=== PATIENT | female | born 1995 | race Caucasian/White ===

== ENCOUNTER → 2017-09-16 | Outpatient (CLI) | payer OTHER | LOC: BMCIMAGING 17:44 | PROVIDERS: ATTEND Family Medicine | DX: M54.5 Low back pain (principal); V89.9XXA Person injured in unspecified vehicle accident, initial encounter ==

== ENCOUNTER 2018-11-08 18:39 | Emergency (ER) | payer OTHER ==
[2018-11-08 18:46] VITALS: BP 126/91
--- NOTE | 2018-11-08 19:16 | EDPHY ---
HPI/HX/ROS/PE/MDM Narrative: CHIEF COMPLAINT: Head injury HISTORY OF PRESENT ILLNESS: This patient is a 23 year old female complaining of headache and nausea secondary to a head injury on Wednesday, three days ago. She was sitting on a bench and purposefully hit her head forcefully into the side of the bench three times. She was with her boyfriend and was upset at the time. She endorses history of hurting herself, usually in the setting of being upset. She denies any suicidal or homicidal ideation. Today, she complains of nausea and dizziness. Denies any vomiting. She endorses frontal headache, and tenderness to the left side of her head. She has taken one ibuprofen, on Wednesday, without relief. She endorses a sensation of being disconnected from her body and states "I feel like I'm in outer space". She takes sertraline daily. She does take oral contraceptives. She denies any fluid draining from her ears or nose. No recent cough or cold. No fever, chills, chest pain, shortness of breath, palpitations, vomiting, diarrhea, urinary complaints. REVIEW OF SYSTEMS: A comprehensive 10 system review of systems is otherwise negative aside from elements mentioned in the history of present illness and medical decision making. PAST MEDICAL HISTORY: Depression. SOCIAL HISTORY: Student at [employer]. Employed. Occasional alcohol use. No tobacco or illicit drug use. VITAL SIGNS: Reviewed by me GENERAL: Well-developed, well-nourished, resting comfortably in no respiratory distress. HEENT: No palpable hematoma or contusion. No scalp laceration. Eyes: HOLLI, EOMI. No icterus, no injection. Mouth: moist mucous membranes. No erythema or lesions. Neck: supple with no adenopathy. No tenderness on palpation. LUNGS: Clear to auscultation bilaterally, no wheezes, rhonchi or rales. CARDIAC: Regular rate and rhythm, no rubs, murmurs or gallops. ABDOMEN: Soft, nontender, nondistended, bowel sounds normal. BACK: No CVA tenderness. EXTREMITIES: No trauma. No edema. Range of motion is normal throughout. NEURO: Alert and oriented, cranial nerves 2-12 are intact. Motor strength 5/5 throughout. Sensation intact to light touch throughout. SKIN: Warm and dry, no rash. PSYCHIATRIC: Normal mentation, no agitation. Portions of this note were transcribed by a medical claims representative. I personally performed a history, physical exam, medical decision making, and confirmed accuracy of information the transcribed note. ED Course: 23 year old female presents with headache, dizziness, and mild nausea after a self-inflicted head injury three days ago. No LOC, no amnesia, no vomiting, no significant mechanism of injury. Patient does not meet criteria for CT head at this time. Discussed concussion follow up. Plan to administer 600mg PO ibuprofen for symptom relief. [place] CT rule negative. Plan to discharge patient home in good condition with concussion precautions, referral to concussion specialist. Follow up and return precautions discussed. The patient is comfortable with this plan. MDM: Differential diagnosis for the patient's head injury was considered including but not limited to concussion, skull fracture, intraparenchymal contusion, subarachnoid, subdural and epidural hematoma, concussion, anxiety. - Data Points Medications Given: Discontinued Medications Ibuprofen (Motrin) 600 mg PO EDNOW ONE Stop: 11/08/18 19:20 Last Admin: 11/08/18 19:20 Dose: 600 mg General Time Seen by Provider: 11/08/18 19:01 Initial Vital Signs: Initial Vital Signs Temperature (C) 36.9 C 11/08/18 18:44 Heart Rate 90 11/08/18 18:44 Respiratory Rate 18 11/08/18 18:44 Blood Pressure 126/91 H 11/08/18 18:44 O2 Sat (%) 99 11/08/18 18:44 O2 Delivery Mode Room Air Allergies/Adverse Reactions: No Known Allergies Allergy (Unverified 11/08/18 18:43) Departure - Departure Disposition: Home, Routine, Self-Care Clinical Impression: Concussion Qualifiers: Encounter type: initial encounter Loss of consciousness presence/duration: without LOC Qualified Code(s): S06.0X0A - Concussion without loss of consciousness, initial encounter Condition: Good Instructions: Concussion (ED) Additional Instructions: 1. Follow-up with your primary care doctor this week. We have referred you to a concussion specialist, please follow up with her as well for continued management of your symptoms. 2. Brain rest - try to avoid TV, video games, cell phones, or reading while symptoms persist. You may reintroduce activities as tolerated. 3. Physical rest - avoid activities that could result in further head injury or that require prolonged attention until your symptoms completely resolve. 4. You may take Tylenol or Ibuprofen as directed below as needed for pain. 5. Return to the Emergency Department for severe headache, vomiting, vision changes, confusion, fever or other concerns. Adult Pain & Fever Control: We recommend Acetaminophen (Tylenol) and Ibuprofen (Motrin,Advil) for pain and fever control. When fever is high or pain severe, both drugs can be used at the same time, but at different intervals. Please note the time differences. Your dose is: Acetaminophen 650mg every 4 to 6 hours Ibuprofen 400mg every 6-8 hours with food Note: do not take Acetaminophen with Hydrocodone (Vicodin, Lortab) or Oxycodone (Percocet). These medications also contain Acetaminophen. No more than 3000mg of Acetaminophen should be taken in 24 hours (for an adult). Referrals: Karla Lujan MD [Medical Doctor] - As per Instructions Stand Alone Forms: School Excuse Report Scribed for: Joellen Shaikh Report Scribed by: Karyna Burrell Date of Report: 11/08/18 Time of Report: 19:17
[2018-11-08] MEDS ORDERED: IBUPROFEN 600 MG TAB PO ONE ×2 (19:19)
== END 2018-11-08 19:35 | disposition home or self-care (01) ==
DX: S06.0X0A Concussion without loss of consciousness, initial encounter (principal); W22.8XXA Striking against or struck by other objects, initial encounter; Z79.899 Other long term (current) drug therapy